=== PATIENT | male | born 1960 | race Two or more races ===

== ENCOUNTER 2017-03-30 04:26 | Emergency (ER) | payer BC ==
--- NOTE | 2017-03-30 04:46 | EDPHY ---
H & P Stated Complaint: left chest pain ... not sleeping well Time Seen by Provider: 03/30/17 04:45 HPI/ROS: CHIEF COMPLAINT: Chest pain. HISTORY OF PRESENT ILLNESS: This 56-year-old male with past medical history of hypertension and bipolar disorder presents to the emergency department tonight with his daughter with complaints of chest pain that started at 12:30 a.m. while he was lying in bed. He was not asleep and it did not wake him up. The pain is in the left upper chest and feels like a pressure. It radiated to his shoulder. At the onset it was 7/10 and currently is 4/10. He is adamant that has been constant since that time. He had mild nausea and "a little "sweating. He did not vomit and did not feel short of breath. When he raises his arm the pain improves but does not go away. When he pushes on the area it makes the discomfort worse. He also had some diarrhea this evening which he described as indigestion. He has no prior episodes of this sort. He has no family history of premature coronary artery disease. He does not use tobacco products. He has not taken aspirin prior to this evening. He was recently hospitalized at [facility] and started four new medications: Lamictal two weeks ago, and more recently trazodone, Prozac, and propranolol. His last alcoholic beverage was approximately one week ago and he has not smoked marijuana for many months. He has been under a lot of stress lately and has been having difficulty sleeping. He denies recent illness or travel. He also had a lipid panel recently listed in our laboratory data which shows triglycerides of 168, cholesterol 140, LDL 64, VLDL 33, LDL/HDL ratio 1.49, cholesterol/HDL ratio 3.26. REVIEW OF SYSTEMS: Constitutional: No fever, no chills. Eyes: No discharge. ENT: No sore throat. Respiratory: As above. Cardiac: As above. Gastrointestinal: No abdominal pain, no vomiting. Genitourinary: No hematuria. Musculoskeletal: No back pain, no leg pain or swelling. Skin: No rashes. Neurological: No headache or dizziness. Source: Patient, Family Exam Limitations: No limitations - Personal History Current Tetanus/Diphtheria Vaccine: No Current Tetanus Diphtheria and Acellular Pertussis (TDAP): No - Medical/Surgical History PMH: PAST MEDICAL HISTORY: hypertension, bipolar disorder, suicidal ideation PAST SURGICAL HISTORY: tonsillectomy FAMILY HISTORY: Both parents are in their 80s. His mother has atrial fibrillation; his father has hypertension and high cholesterol. There is no family history of premature coronary artery disease. NKDA MEDS: Trazodone, Lamictal, Prozac, propranolol PRIMARY CARE PROVIDER is Dr. Erick Chilel Hx Asthma: No Hx Chronic Respiratory Disease: No Hx Diabetes: No Hx Cardiac Disease: No Hx Renal Disease: No Hx Cirrhosis: No Hx Alcoholism: No Hx HIV/AIDS: No Hx Splenectomy or Spleen Trauma: No Other PMH: bipolar - Family History Significant Family History: Hypertension, Other (Hypercholesterolemia; Atrial Fibrillation) - Social History Smoking Status: Never smoked Alcohol Use: Occasionally (Last drink one week ago) Drug Use: Marijuana (None for many months) - Physical Exam Exam: General Appearance: Alert, no distress; anxious. Eyes: Pupils equal and round no pallor or injection. ENT, Mouth: Mucous membranes are moist, no erythema or exudate. Uvula midline. Respiratory: There are no retractions, lungs are clear to auscultation. Chest Wall: Palpation over left upper chest reproduces the discomfort. Cardiovascular: Regular rate and rhythm, no murmur, gallops or rubs. No edema. Gastrointestinal: Abdomen is soft and nontender, no masses, bowel sounds normal. Neurological: Awake and alert, sensory and motor exams grossly normal. Skin: Warm and dry, no rashes. Musculoskeletal: Neck is supple nontender, no JVD. Extremities are symmetrical, full range of motion. No calf tenderness or swelling. Psychiatric: Patient is oriented X 3, there is no agitation. DIFFERENTIAL DIAGNOSIS: After history and physical exam differential diagnosis was considered: [Chest pain including but not limited to myocardial ischemia, pulmonary embolus, chest wall pain, pleural inflammation and pulmonary infectious causes as well as anxiety and medication side effects.] Constitutional: Initial Vital Signs Temperature (C) 98.2 F 03/30/17 04:27 Heart Rate 60 03/30/17 04:27 Respiratory Rate 18 03/30/17 04:27 Blood Pressure 145/79 H 03/30/17 04:27 O2 Sat (%) 96 03/30/17 04:27 O2 Delivery Mode Room Air Allergies/Adverse Reactions: No Known Allergies Allergy (Unverified 03/30/17 04:30) Home Medications: Medication Instructions Recorded LaMICtal 03/30/17 Propranolol HCl 03/30/17 Prozac 10 MG (*) 03/30/17 traZODone 03/30/17 Medical Decision Making - Diagnostics EKG Interpretation: EKG 1. Performed at 4:39 a.m. shows a sinus rhythm with a heart rate of 59, normal intervals, no acute ischemic changes. Imaging: I viewed and interpreted images myself (2 View CXR NAD ) ED Course/Re-evaluation: The patient was seen and examined. Vital signs were reviewed. An EKG was performed and showed no acute ischemic changes. The patient received aspirin in the ER. He declined any further pain medication. His CBC, comprehensive metabolic panel, lipase, magnesium, and troponin were remarkable for only a slightly elevated lipase. His chest x-ray was negative as read by me. His heart score is 3 for risk of major adverse cardiac event (0.9-1.7%). We will repeat a troponin and EKG in 3 hours. If these are normal then I believe the patient can be safely discharged home to follow up with his primary care provider on Saturday. Care Turn Over: The care of the patient was turned over to Dr. Marline Kingsley at 7:00 a.m. - Data Points Laboratory Results: Laboratory Results 03/30/17 04:45 03/30/17 04:45 03/30/17 03/30/17 03/30/17 04:45 04:45 04:45 WBC 7.34 10^3/uL 10^3/uL (3.80-9.50) RBC 4.24 10^6/uL L 10^6/uL (4.40-6.38) Hgb 14.4 g/dL g/dL (13.7-17.5) Hct 39.7 % L % (40.0-51.0) MCV 93.6 fL fL (81.5-99.8) MCH 34.0 pg pg (27.9-34.1) MCHC 36.3 g/dL g/dL (32.4-36.7) RDW 12.0 % % (11.5-15.2) Plt Count 250 10^3/uL 10^3/uL (150-400) MPV 9.7 fL fL (8.7-11.7) Neut % (Auto) 65.1 % % (39.3-74.2) Lymph % (Auto) 22.8 % % (15.0-45.0) [place] % (Auto) 8.9 % % (4.5-13.0) Eos % (Auto) 2.0 % % (0.6-7.6) Baso % (Auto) 0.8 % % (0.3-1.7) Nucleat RBC Rel Count 0.0 % % (0.0-0.2) Absolute Neuts (auto) 4.78 10^3/uL 10^3/uL (1.70-6.50) Absolute Lymphs (auto) 1.67 10^3/uL 10^3/uL (1.00-3.00) Absolute Monos (auto) 0.65 10^3/uL 10^3/uL (0.30-0.80) Absolute Eos (auto) 0.15 10^3/uL 10^3/uL (0.03-0.40) Absolute Basos (auto) 0.06 10^3/uL 10^3/uL (0.02-0.10) Absolute Nucleated RBC 0.00 10^3/uL 10^3/uL (0-0.01) Immature Gran % 0.4 % % (0.0-1.1) Immature Gran # 0.03 10^3/uL 10^3/uL (0.00-0.10) PT 12.8 SEC SEC (12.0-15.0) INR 0.99 (0.83-1.16) APTT 31.3 SEC SEC (23.0-38.0) Sodium 140 mEq/L mEq/L (134-144) Potassium 4.5 mEq/L mEq/L (3.5-5.2) Chloride 106 mEq/L mEq/L (97-110) Carbon Dioxide 24 mEq/l mEq/l (22-31) Anion Gap 10 mEq/L mEq/L (8-16) BUN 24 mg/dL H mg/dL (7-23) Creatinine 0.7 mg/dL mg/dL (0.7-1.3) Estimated GFR > 60 Glucose 100 mg/dL mg/dL (70-100) Calcium 9.5 mg/dL mg/dL (8.5-10.4) Phosphorus 4.0 mg/dL mg/dL (2.5-4.5) Magnesium 2.2 mg/dL mg/dL (1.6-2.3) Total Bilirubin 0.6 mg/dL mg/dL (0.1-1.4) Conjugated Bilirubin 0.4 mg/dL mg/dL (0.0-0.5) Unconjugated Bilirubin 0.2 mg/dL mg/dL (0.0-1.1) AST 17 IU/L IU/L (17-59) ALT 39 IU/L IU/L (21-72) Alkaline Phosphatase 59 IU/L IU/L (38-126) Lactate Dehydrogenase Cancelled CK-MB (CK-2) Fraction 0.72 ng/mL ng/mL (0.00-4.55) Troponin I < 0.012 ng/mL ng/mL (0.000-0.034) Total Protein 6.1 g/dL L g/dL (6.3-8.2) Albumin 4.1 g/dL g/dL (3.5-5.0) Lipase 479 IU/L H IU/L (23-300) Medications Given: Discontinued Medications Aspirin (Aspirin) 324 mg PO EDNOW ONE Stop: 03/30/17 04:49 Last Admin: 03/30/17 04:57 Dose: 324 mg Departure - Departure Referrals: Patient,NotPresent [Primary Care Provider] - As per Instructions
[2017-03-30] MEDS ORDERED: ASPIRIN 81 MG CHEWABLE TAB PO ONE (04:48)
--- NOTE | 2017-03-30 04:54 | CPEKG ---
Heart Rate: 59 RR Interval: 1017 P-R Interval: 128 QRSD Interval: 88 QT Interval: 400 QTC Interval: 397 P [place]: 77 QRS [place]: 85 T Wave [place]: 70 EKG Severity - BORDERLINE ECG - EKG Impression: SINUS RHYTHM EKG Impression: BORDERLINE T ABNORMALITIES, ANT-LAT LEADS Electronically Signed By: Vane Clayton 30-Mar-2017 06:13:37
[2017-03-30 04:59] LABS: % IMMATURE GRANULYOCYTES 0.4 % (0.0-1.1); ABSOLUTE IMMATURE GRANULOCYTES 0.03 10^3/uL (0.00-0.10); ADD DIFF? NO; ADD MORPH? NO; ADD SCAN? NO; ATYPICAL LYMPHOCYTE FLAG 0 (0-99); FRAGMENT RBC FLAG 0 (0-99); HEMATOCRIT 39.7 % (40.0-51.0); HEMOGLOBIN 14.4 g/dL (13.7-17.5); LEFT SHIFT FLG 0 (0-99); LIPEMIA HEMOLYSIS FLAG 90 (0-99); MEAN CELL HEMOGLOBIN CONCENTR. 36.3 g/dL (32.4-36.7); MEAN CELL VOLUME 93.6 fL (81.5-99.8); MEAN PLATELET VOLUME 9.7 fL (8.7-11.7); PLATELET CLUMPS FLAG 0 (0-99); PLATELET COUNT 250 10^3/uL (150-400); RED BLOOD CELL COUNT 4.24 10^6/uL (4.40-6.38)
[2017-03-30 05:05] LABS: INR 0.99 (0.83-1.16); PROTIME(PATIENT) 12.8 SEC (12.0-15.0)
[2017-03-30 05:06] LABS: APTT 31.3 SEC (23.0-38.0)
[2017-03-30 05:08] LABS: ALANINE AMINOTRANSFERASE 39 IU/L (21-72); ALBUMIN 4.1 g/dL (3.5-5.0); ALKALINE PHOSPHATASE 59 IU/L (38-126); ANION GAP 10 mEq/L (8-16); ASPARTATE AMINOTRANSFERASE 17 IU/L (17-59); BILIRUBIN,TOTAL 0.6 mg/dL (0.1-1.4); BILIRUBIN-CONJUGATED 0.4 mg/dL (0.0-0.5); BILIRUBIN-UNCONJUGATED 0.2 mg/dL (0.0-1.1); CALCIUM 9.5 mg/dL (8.5-10.4); CARBON DIOXIDE 24 mEq/l (22-31); CHLORIDE 106 mEq/L (97-110); CREATININE 0.7 mg/dL (0.7-1.3); GLOMERULAR FILTRATION RATE > 60; GLUCOSE 100 mg/dL (70-100); MAGNESIUM 2.2 mg/dL (1.6-2.3); POTASSIUM 4.5 mEq/L (3.5-5.2); SODIUM 140 mEq/L (134-144); TOTAL PROTEIN 6.1 g/dL (6.3-8.2)
[2017-03-30 05:23] LABS: CREATINE KINASE-MB FRACTION 0.72 ng/mL (0.00-4.55); TROPONIN I < 0.012 ng/mL (0.000-0.034)
--- NOTE | 2017-03-30 07:45 | CPEKG ---
Heart Rate: 65 RR Interval: 923 P-R Interval: 140 QRSD Interval: 92 QT Interval: 380 QTC Interval: 396 P [place]: 68 QRS [place]: 78 T Wave [place]: 59 EKG Severity - OTHERWISE NORMAL ECG - EKG Impression: SINUS RHYTHM EKG Impression: Left atrial abnormality EKG Impression: No significant change from March 30, 2017, 4:39 Electronically Signed By: Italo Hernandez 05-Apr-2017 11:03:36
[2017-03-30 09:59] VITALS: RESP 18
[2017-03-30 10:02] VITALS: BP 136/68; PULSE 61; TEMP 98.2; O2SAT 96
== END 2017-03-30 10:04 | disposition home or self-care (01) ==
LOC: CED 04:26
DX: R07.9 Chest pain, unspecified (principal); I10 Essential (primary) hypertension
CPT/HCPCS: 71020-PO; 80048-PO; 80076-PO; 82553-PO; 83690-PO; 83735-PO; 84100-PO; 84484-PO; 85025-PO; 85610-PO; 85730-PO